=== PATIENT | male | born 1985 | race Caucasian/White ===

== ENCOUNTER 2023-05-01 13:57 | Outpatient (RCR) | payer OTHER, SELFPAY | END 2023-05-01 23:59 | disposition home or self-care (01) | LOC: RPT 13:57 | PROVIDERS: ATTENDING PHYSICIAN Internal Medicine | DX: M25.512 Pain in left shoulder (principal); Z73.6 Limitation of activities due to disability; M62.81 Muscle weakness (generalized); M25.522 Pain in left elbow; M25.532 Pain in left wrist | CPT/HCPCS: 97010; 97110; 97112; 97162 ==

== ENCOUNTER 2023-05-24 16:58 | Outpatient (RCR) | payer OTHER, SELFPAY | END 2023-05-24 23:59 | disposition home or self-care (01) | LOC: RPT 16:58 | PROVIDERS: ATTENDING PHYSICIAN Internal Medicine | DX: M25.512 Pain in left shoulder (principal); Z73.6 Limitation of activities due to disability; M62.81 Muscle weakness (generalized); M54.2 Cervicalgia | CPT/HCPCS: 97010; 97110; 97140 ==